=== PATIENT | female | born 1950 | race American Indian/Alaskan Native ===

== ENCOUNTER 2018-03-27 11:55 | Emergency (ER) | payer MEDICARE ==
--- NOTE | 2018-03-27 16:31 | Emergency Department Report ---
ED Lower Extremity HPI - General Chief Complaint: Extremity Problem,Nontraumatic Stated Complaint: PAIN ON (L) LEG/KNEE Time Seen by Provider: 03/27/18 14:53 Source: patient Mode of arrival: Ambulatory Limitations: No Limitations - History of Present Illness Initial Comments: This is a 67-year-old -Filipino female presents with left thigh pain radiated to left ankle for 3-4 weeks. Patient reports pain is 9 out of 10 on pain scale intermittent. Patient states there is swelling of left ankle and numbness to left foot. Patient has been using heat and ice with no improvement of symptoms. States she information on line and thought it was a pulled hamstring but in believe he should have improved by now. Denies recent injury, deformity, warm to touch, low back pain, chest pain, abdominal pain, and nausea and vomiting. MD Complaint: thigh injury (left thigh) Onset/Timin -: week(s) Injury: Thigh: Left, Knee: Left Type of Injury: unknown Place: home Severity: moderate Severity scale (0 -10): 6 Improves With: nothing Worsens With: weight bearing, movement, palpation Context: walking Associated Symptoms: swelling, numbness, able to partially bear weight, ambulatory. denies: tingling, unable to bear weight Treatments Prior to Arrival: cold therapy, NSAIDS - Related Data Previous Rx's Medication Instructions Recorded Last Taken Type traMADol [Ultram 50 MG tab] 50 mg PO Q6HR PRN #15 tablet 03/27/18 Unknown Rx Allergies Allergy/AdvReac Type Severity Reaction Status Date / Time No Known Allergies Allergy Unverified 08/13/15 09:11 ED Review of Systems ROS: Stated complaint: PAIN ON (L) LEG/KNEE Other details as noted in HPI Constitutional: denies: chills, fever Respiratory: denies: cough, shortness of breath, wheezing Cardiovascular: denies: chest pain, palpitations Gastrointestinal: denies: abdominal pain, nausea, diarrhea Musculoskeletal: arthralgia (or extremity pain). denies: back pain, joint swelling Skin: denies: rash, lesions Neurological: denies: headache, weakness, paresthesias Psychiatric: denies: anxiety, depression ED Past Medical Hx - Past Medical History Hx Asthma: Yes - Surgical History Additional Surgical History: Hysterectomy - Social History Smoking Status: Never Smoker Substance Use Type: None - Medications Home Medications: Home Medications Medication Instructions Recorded Confirmed Last Taken Type traMADol [Ultram 50 MG tab] 50 mg PO Q6HR PRN #15 tablet 03/27/18 Unknown Rx ED Physical Exam - General Limitations: No Limitations General appearance: alert, in no apparent distress - Respiratory Respiratory exam: Present: normal lung sounds bilaterally. Absent: respiratory distress - Cardiovascular Cardiovascular Exam: Present: regular rate, normal rhythm. Absent: systolic murmur, diastolic murmur, rubs, gallop - GI/Abdominal GI/Abdominal exam: Present: soft, normal bowel sounds. Absent: organomegaly, mass - Expanded Lower Extremity Exam Left Hip exam: Present: normal inspection, full ROM Upper Leg exam: Present: full ROM, tenderness. Absent: swelling, abrasion, laceration, ecchymosis, deformity, crepidus, dislocation Knee exam: Present: full ROM, full knee extension. Absent: tenderness, swelling , abrasion, laceration, ecchymosis, deformity, crepidus, dislocation, erythema, effusion Lower Leg exam: Present: full ROM. Absent: tenderness, swelling, abrasion, laceration, ecchymosis, deformity, crepidus, dislocation, erythema, palpable cord, Audrey's sign (positive straight leg test on Left) Ankle exam: Present: full ROM, swelling. Absent: abrasion, laceration, ecchymosis, deformity, crepidus, dislocation, erythema, anterior draw sign Foot/Toe exam: Present: normal inspection, full ROM Neuro vascular tendon exam: Present: no vascular compromise Gait: Positive: observed and limited by pain - Back Exam Back exam: Present: normal inspection, full ROM. Absent: CVA tenderness (R), CVA tenderness (L), paraspinal tenderness, vertebral tenderness, rash noted - Neurological Exam Neurological exam: Present: alert, oriented X3 - Psychiatric Psychiatric exam: Present: normal affect, normal mood - Skin Skin exam: Present: warm, dry, intact, normal color. Absent: rash ED Course Vital Signs 03/27/18 12:19 Temperature 98.4 F Pulse Rate 76 Respiratory 18 Rate Blood Pressure 152/95 O2 Sat by Pulse 98 Oximetry ED Lower Extremity MDM - Radiology Data Radiology results: report reviewed LLE VENOUS DUPLEX COMPLETED. VAS LAB PRELIMINARY REPORT; NO EVIDENCE OF DVT/SVT NOTED IN VESSELS/SEGMENTS EXAMINED, BLE. PHYSICIANS REPORT TO FOLLOW. - Medical Decision Making This is a 67 y.o. female presents with left lower extremity pain for 3-4 weeks. History of hypertension, hypothyroidism, hyperlipidemia. Patient was examined by me. Venous duplex Doppler to the left lower extremity obtained and negative for DVT. Physical findings susceptible of sciatica. Given Deford 5/ 325 mg by mouth 1 and dexamethasone 8 mg IM while in ER. Patient is taking Flexeril and Ibuprofen prescribed from primary care provider Dr. Reeder with no improvement of symptoms. Patient states PCP was going to refer her to Orthopedic and pain management but he never sent referrals. She can't take pain pain. Patient informed of results. Continue taking ibuprofen and cyclobenzaprine and start tramadol for pain and f/u with orthopedic Surgery. Plan discussed with patient to discharge home and f/u with Orthopedic. Patient discharged home in stable condition. Follow up with PCP in 2-3 days. Critical care attestation.: If time is entered above; I have spent that time in minutes in the direct care of this critically ill patient, excluding procedure time. ED Disposition Clinical Impression: Sciatica of left side without back pain, Left leg pain Disposition: TO HOME OR SELFCARE Is pt being admited?: No Does the pt Need Aspirin: No Condition: Stable Instructions: Sciatica (ED), Arthralgia (ED) Additional Instructions: Rest Use ice or heat on affected area for 20 minutes and off for 2 hours. Take pain medication as needed for pain. Don't drive or operate heavy machinery while taking muscle relaxers because they may cause drowsiness. Follow up with Primary Care Provider in 2-3 days. Prescriptions: traMADol [Ultram 50 MG tab] 50 mg PO Q6HR PRN #15 tablet PRN Reason: Pain Referrals: CASE RICHARD MD [Staff Physician] - 3-5 Days JUDY REEDER MD [Referring] - 3-5 Days [facility] [Provider Group] - 3-5 Days Time of Disposition: 17:49 Print Language: NORWEGIAN
[2018-03-27] MEDS ORDERED: DECADRON IM ONE (17:52)
[2018-03-27] MEDS ORDERED: NORCO 5/325 PO ONE (17:52)
[2018-03-27 18:21] VITALS: BP 119/66
== END 2018-03-27 18:21 | disposition home or self-care (01) ==
LOC: ED 11:55
DX: M54.32 Sciatica, left side (principal); M79.605 Pain in left leg; J45.909 Unspecified asthma, uncomplicated; I10 Essential (primary) hypertension; E03.9 Hypothyroidism, unspecified; E78.5 Hyperlipidemia, unspecified; Z90.710 Acquired absence of both cervix and uterus
CPT/HCPCS: 93971; 96372; 99283; J1100

== ENCOUNTER 2018-11-12 10:56 | Emergency (ER) | payer MEDICARE ==
--- NOTE | 2018-11-12 11:45 | Emergency Department Report ---
Chief Complaint: Fall Stated Complaint: FALL Time Seen by Provider: 11/12/18 11:44 - HPI History of Present Illness: sp glf no loc co right side pain- ankle, knee, hip ambulatory VSS MSE completed - Exam Vital Signs: Vital Signs 11/12/18 11:18 Temperature 97.9 F Pulse Rate 79 Respiratory 16 Rate Blood Pressure 167/103 O2 Sat by Pulse 99 Oximetry MSE screening note: Focused history and physical exam performed. Due to findings the following was ordered: ED Disposition for MSE Condition: Stable Referrals: NATHEN RONDON MD [Primary Care Provider] - 3-5 Days
[2018-11-12 12:35] VITALS: BP 133/76
--- NOTE | 2018-11-12 12:39 | Emergency Department Report ---
ED Fall HPI - General Chief Complaint: Fall Stated Complaint: FALL Time Seen by Provider: 11/12/18 11:44 Source: patient Mode of arrival: Ambulatory - History of Present Illness MD Complaint: fall -: Last night Fall From: standing Fall Witnessed: yes, by family Place Fall Occurred: home Loss of Consciousness: none Prolonged Down Time?: no Symptoms Prior to Fall: none Location - Extremities: Right: Shoulder, Knee, Ankle Severity: moderate Severity scale (0 -10): 5 Quality: sharp Context: tripped/slipped Associated Symptoms: denies - Related Data Previous Rx's Medication Instructions Recorded Last Taken Type traMADol [Ultram 50 MG tab] 50 mg PO Q6HR PRN #15 tablet 03/27/18 Unknown Rx Allergies Allergy/AdvReac Type Severity Reaction Status Date / Time No Known Allergies Allergy Unverified 08/13/15 09:11 ED Review of Systems ROS: Stated complaint: FALL Other details as noted in HPI Comment: All other systems reviewed and negative Constitutional: denies: chills, fever Respiratory: denies: cough, shortness of breath, SOB with exertion Cardiovascular: denies: chest pain, palpitations Gastrointestinal: denies: abdominal pain, nausea, diarrhea, constipation, hematemesis, hematochezia Musculoskeletal: arthralgia. denies: back pain Neurological: denies: headache, weakness ED Past Medical Hx - Past Medical History Hx Asthma: Yes - Surgical History Additional Surgical History: Hysterectomy - Social History Smoking Status: Never Smoker Substance Use Type: Prescribed - Medications Home Medications: Home Medications Medication Instructions Recorded Confirmed Last Taken Type traMADol [Ultram 50 MG tab] 50 mg PO Q6HR PRN #15 tablet 03/27/18 Unknown Rx ED Physical Exam - General Limitations: No Limitations General appearance: alert, in no apparent distress - Head Head exam: Present: atraumatic, normocephalic, normal inspection - Eye Eye exam: Present: normal appearance, PERRL - ENT ENT exam: Present: normal exam, normal orophraynx, mucous membranes moist - Neck Neck exam: Present: normal inspection, full ROM. Absent: tenderness, meningismus, lymphadenopathy, thyromegaly - Respiratory Respiratory exam: Present: normal lung sounds bilaterally. Absent: respiratory distress, wheezes, rales, rhonchi, chest wall tenderness, accessory muscle use, decreased breath sounds, prolonged expiratory - Cardiovascular Cardiovascular Exam: Present: regular rate, normal rhythm, normal heart sounds - GI/Abdominal GI/Abdominal exam: Present: soft, normal bowel sounds. Absent: distended, tenderness, guarding, rebound, rigid, organomegaly, mass, bruit, pulsatile mass, hernia - Extremities Exam Extremities exam: Present: normal inspection, full ROM, normal capillary refill. Absent: pedal edema, calf tenderness - Expanded Upper Extremity Exam Right Shoulder Exam: Present: normal inspection, full ROM, tenderness. Absent: swelling, abrasion, laceration Upper Arm exam: Present: normal inspection, full ROM Elbow exam: Present: normal inspection, full ROM Forearm Wrist exam: Present: normal inspection, full ROM, tenderness. Absent: swelling, abrasion Hand Wrist exam: Present: normal inspection, full ROM Neuro motor exam: Present: wrist extension intact, thumb opposition intact, thumb IP flexion intact, thumb adduction intact, fingers 2-5 abduction intact Neurosensory exam: Present: 2-point discrimination, radial nerve intact, ulnar nerve intact, median nerve intact Vascular: Present: normal capillary refill - Expanded Lower Extremity Exam Right Hip exam: Present: full ROM. Absent: tenderness, swelling, abrasion Knee exam: Present: normal inspection, full ROM Lower Leg exam: Present: normal inspection, full ROM. Absent: tenderness, swelling, abrasion Ankle exam: Present: normal inspection, full ROM, tenderness, swelling Foot/Toe exam: Present: normal inspection, full ROM Neuro vascular tendon exam: Present: no vascular compromise - Back Exam Back exam: Present: normal inspection, full ROM. Absent: tenderness, CVA tenderness (R), CVA tenderness (L), muscle spasm, paraspinal tenderness, vertebral tenderness ED Course Vital Signs 11/12/18 11/12/18 11:18 12:33 Temperature 97.9 F Pulse Rate 79 65 Respiratory 16 16 Rate Blood Pressure 167/103 Blood Pressure 133/76 [Left] O2 Sat by Pulse 99 95 Oximetry ED Medical Decision Making - Radiology Data Radiology results: report reviewed Right tib-fib, right knee, right ankle x-ray is negative for acute finding. Critical care attestation.: If time is entered above; I have spent that time in minutes in the direct care of this critically ill patient, excluding procedure time. ED Disposition Clinical Impression: Fall, Contusion Disposition: TO HOME OR SELFCARE Is pt being admited?: No Condition: Stable Instructions: Fall Prevention (ED), Contusion in Adults (ED) Referrals: NATHEN RONDON MD [Primary Care Provider] - 3-5 Days
--- NOTE | 2018-11-12 14:01 | XRay Report ---
PROCEDURE: XR ANKLE 3+V RT TECHNIQUE: Right ankle radiographs, AP, lateral, and oblique views. HISTORY: fall, right ankle pain COMPARISONS: None . FINDINGS: Fracture (s) and/or Dislocation(s): None . Alignment: Normal . Joint space(s): Mild hypertrophic changes of the medial malleolus . Soft tissues: Mild diffuse soft tissue swelling . Bone mineralization: Normal . Foreign bodies: None . Calcaneal spurring: Small plantar calcaneal spur and small enthesophyte of the descending . IMPRESSION: Mild degenerative changes without acute fracture or dislocation . Mild diffuse soft tiss ue swelling. This document is electronically signed by Susu Bhatti MD., November 12 2018 01:58:12 PM ET
--- NOTE | 2018-11-12 14:08 | XRay Report ---
PROCEDURE: XR KNEE 3V RT HISTORY: fall, right knee pain FINDINGS: AP, lateral and oblique views of the right knee were acquired and demonstrate no fracture o r malalignment of the right knee. There is advanced tricompartmental osteoarthritis. There is a knee joint effusion. IMPRESSION: No fracture is seen of the right knee Advanced tricompartmental right knee osteoarthritis. Knee joint effusion This document is electronically signed by Dmitriy Vazquez MD., November 12 2018 02:06:14 PM ET
--- NOTE | 2018-11-12 14:09 | XRay Report ---
PROCEDURE: XR PELVIS 1-2V TECHNIQUE: Pelvis radiograph, one view. HISTORY: fall, right hip pain COMPARISONS: None FINDINGS: Single AP view of the pelvis was acquired. No fracture is seen in the pelvis or hips. There is mild loss of left hip joint space consistent with osteoarthritis. IMPRESSION: No fracture is seen in the pelvis or hips This document is electronically signed by Dmitriy Vazquez MD., November 12 2018 02:06:55 PM ET
== END 2018-11-12 14:29 | disposition home or self-care (01) ==
LOC: ED 10:56
DX: S40.011A Contusion of right shoulder, initial encounter (principal); S90.01XA Contusion of right ankle, initial encounter; S80.01XA Contusion of right knee, initial encounter; W18.30XA Fall on same level, unspecified, initial encounter; Y93.89 Activity, other specified; Y92.89 Other specified places as the place of occurrence of the external cause; Y99.8 Other external cause status
CPT/HCPCS: 72170

== ENCOUNTER 2020-12-29 09:31 | Outpatient (CLI) | payer MEDICARE ==
--- NOTE | 2020-12-29 11:02 | XRay Report ---
BILATERAL KNEES STANDING AP VIEW INDICATION: M17.0 M17.11. COMPARISON: None. IMPRESSION: Normal bone mineralization. No acute osseous abnormality or bone lesion. Mild to modera te valgus deformity is present bilaterally, more so on the right. Minimal osteoarthritic changes are identified in the left knee. Moderate to severe degenerative changes are identified in the right knee which are most pronounced in the lateral compartment. Signer Name: Blake Catalan Jr, MD Signed: 12/29/2020 10:58 AM Workstation Name: [id number]
== END 2020-12-29 09:32 | disposition home or self-care (01) ==
LOC: XRAY 09:31
PROVIDERS: ATTEND Orthopaedic Surgery
DX: M17.0 Bilateral primary osteoarthritis of knee (principal); M21.062 Valgus deformity, not elsewhere classified, left knee; M21.061 Valgus deformity, not elsewhere classified, right knee
CPT/HCPCS: 73565

== ENCOUNTER 2021-02-12 06:14 | Inpatient (IN) | payer MEDICARE ==
[2021-02-10 09:54] LABS: Hematocrit 37.2 % (30.3-42.9); Hemoglobin 12.2 gm/dl (10.1-14.3); Mean Corpuscular HGB Conc 33 % (30-34); Mean Corpuscular Volume 86 fl (79-97); Platelet Count 271 K/mm3 (140-440); Red Blood Count 4.34 M/mm3 (3.65-5.03); Red Cell Distribution Width 14.7 % (13.2-15.2)
--- NOTE | 2021-02-10 10:06 | Anesthesia Consultation ---
Anesthesia Consult and Med Hx Date of service: 02/12/21 - Airway Anesthetic Teeth Evaluation: Good ROM Head & Neck: Adequate Mental/Hyoid Distance: Adequate Mallampati Class: Class II Intubation Access Assessment: Good - Pre-Operative Health Status ASA Pre-Surgery Classification: ASA2 Proposed Anesthetic Plan: Spinal (GA if needed) Nerve Block: AC - Pulmonary Hx Smoking: No Hx Asthma: Yes (INHHALER PRN) Hx Sleep Apnea: No (BRICE PRE SCREEN LOW RISK) - Cardiovascular System Hx Hypertension: Yes (X 5 YRS) - Central Nervous System Hx Back Pain: Yes (NECK PAIN , SCIATIC PAIN) Hx Psychiatric Problems: No - Endocrine Hx Thyroid Disease: Yes Hx Hypothyroidism: Yes (NOT ON MEDS AT PRESENT-self d/c'd) - Hematic Hx Anemia: No - Other Systems Hx Cancer: No
[2021-02-10 10:15] LABS: BUN/Creatinine Ratio 23; Blood Urea Nitrogen 18 mg/dL (7-17); Calcium 9.3 mg/dL (8.4-10.2); Hemolysis Index 0
[~2021-02-12 06:14] MED LIST: ACETAMINOPHEN 325 MG TAB PO NR; CELECOXIB 200 MG CAP PO NR; MAGNESIUM OXIDE 400 MG TAB PO NR; MIDAZOLAM 2 MG/2 ML INJ IV NR; ceFAZolin/Water 2 GM/20 ML 2 GM/20 ML SYRINGE IV NR; fentaNYL 100 MCG/2 ML INJ IV NR
--- NOTE | 2021-02-12 06:59 | Anesthesia Day of Surgery ---
Anesthesia Day of Surgery - Day of Surgery Patient Examined: Yes Patient H&P Reviewed: Yes Patient is NPO: Yes Beta Blockers: No Cardiac Clearance: No Pulmonary Clearance: No Johnny's Test: N/A
[2021-02-12] MEDS ORDERED: fentaNYL 100 MCG/2 ML INJ ONE (07:12)
[2021-02-12] MEDS ORDERED: propofoL 200 MG/20 ML VIAL IV ONE ×5 (07:12→10:11)
[2021-02-12] MEDS ORDERED: HYDROmorphone 1 MG/1 ML INJ ONE (07:12)
[2021-02-12] MEDS ORDERED: ONDANSETRON 4 MG/2 ML INJ ONE (07:12)
[2021-02-12] MEDS ORDERED: LIDOCAINE MPF (2%) 20 MG/1 ML VIAL 5 ML ONE (07:12)
[2021-02-12] MEDS ORDERED: BUPIVACAINE/PF (0.25%) 2.5 MG/ML 30 ML VIAL INFILTRATI ONE (07:22)
[2021-02-12] MEDS ORDERED: dexAMETHasone 4 MG/ML VIAL ONE (07:23)
[2021-02-12] MEDS: LACTATED RINGERS 1,000 ML IV SCH ×2 (07:30→16:10)
[2021-02-12] MEDS ORDERED: ePHEDrine SULFATE 50 MG/1 ML INJ ONE ×2 (07:42→08:50)
[2021-02-12] MEDS ORDERED: HYDROmorphone 1 MG/1 ML INJ IV PRN ×2 (08:00)
[2021-02-12] MEDS ORDERED: ONDANSETRON 4 MG/2 ML INJ IV PRN ×2 (08:00→11:02)
[2021-02-12] MEDS ORDERED: BUPIVACAINE/PF (0.5%) 5 MG/1 ML 10 ML VIAL INFILTRATI ONE ×3 (08:18→09:44)
[2021-02-12] MEDS ORDERED: KETOROLAC 30 MG/1 ML INJ ONE (08:19)
[2021-02-12] MEDS ORDERED: SODIUM CHLORIDE 0.9% 100 ML ONE ×2 (08:19→08:44)
[2021-02-12] MEDS ORDERED: SODIUM CHLORIDE 0.9% 50 ML ONE (08:19)
[2021-02-12] MEDS ORDERED: SODIUM CHLORIDE P/F VIAL 10 ML 0 ML ONE (08:19)
[2021-02-12] MEDS ORDERED: TRANEXAMIC ACID 1,000 MG/10 ML ONE (08:19)
[2021-02-12] MEDS ORDERED: MORPHINE 10 MG/1 ML INJ ONE (08:44)
[2021-02-12] MEDS ORDERED: KETAMINE/STERILE WATER 50 MG/ML SYRINGE ONE (08:56)
[2021-02-12] MEDS ORDERED: methylPREDNISolone ACETATE 40 MG/1 ML INJ ONE (09:14)
[2021-02-12] MEDS ORDERED: KETOROLAC 30 MG/1 ML INJ IV ONE (09:45)
[2021-02-12] MEDS ORDERED: MORPHINE 10 MG/1 ML INJ IM ONE (09:46)
[2021-02-12] MEDS ORDERED: SODIUM CHLORIDE 0.9% 100 ML IVPB IV ONE (09:47)
[2021-02-12] MEDS ORDERED: SODIUM CHLORIDE 0.9% 50 ML IVPB IV ONE (09:48)
[2021-02-12] MEDS ORDERED: methylPREDNISolone ACETATE 40 MG/1 ML INJ INTRA-ARTI ONE (09:48)
[2021-02-12] MEDS ORDERED: TRANEXAMIC ACID 1,000 MG/10 ML IV ONE (10:00)
--- NOTE | 2021-02-12 11:16 | Procedure Note ---
Date of procedure: 02/12/21 Pre-op diagnosis: Severe arthritis right knee Post-op diagnosis: same Procedure: [Right] total knee replacement Procedure The patient was brought to the OR after being given a obturator nerve block and preoperative holding she was placed on the OR table supine position following induction elevation of anesthesia the patient is [right] lower extremity was prepped and draped in the usual sterile manner. A timeout procedure was done to identify the patient in the correct operative site. The leg was exsanguinated followed by inflation of the pneumatic tourniquet to 300 mmHg. A midline incision was made over the patella was taken down distally towards the tibial tubercle next the medial retinaculum was incised and the patella was inverted examination of the patient's knee joint revealed typical osteoarthritic changes with large bone spurs noted primarily in the medial compartment both the femoral and tibial's articular surfaces exhibited bare bone and large peripheral osteophytes next a large drill bit was used to enter the medullary canal this was followed by placement of the distal femoral cutting Jig the distal femur was resected approximately 8-9 mm of bone was removed at this time. Attention was turned to the patient's proximal tibia using a external alignme guide the bone was cut using the medial surface as the low point of care was taken to protect the medial collateral ligaments the tibial articular surface was 7-sized A3 a #4 tibial based ray was selected this was followed by placement of the fixation hole or keel into the proximal tibial artery medullary canal. Attention was turned to the distal femur and using a 4 and 1 cutting block a +3 component was selected AP anterior and posterior as well as Whitney cuts were made. A #4 tibial tray and #3 femoral component was placed and the knee was then taken to a range of motion she appeared to have stability in both the flexion and extension FOLLOWING this the trial components were removed the knee was then copiously irrigated any remaining soft tissue and bony debris were removed at this time next the cement was next and following this the tibial components were inserted beginning with the based tray followed by the 17mm polyethylene insert The femoral component was added the excess were removed the knee was held in extension until the cement hardened following hardening of cement the knee was then brought back into of flexion any remaining soft tissue and bony debris were removed at this time. The wound again was irrigated and was closed in a standard routine fashion. Dressings were applied the patient tolerated the procedure there were no complications she was then taken to post anesthesia recovery Anesthesia: MAC, regional Surgeon: CASE RICHARD (Ioana Davila, 1st assist) Estimated blood loss: minimal Pathology: list (Bone and cartilage right knee) Specimen disposition: to lab Condition: stable Disposition: PACU
--- OUTSIDE RECORDS SUMMARY | 2021-02-12 15:44 | External Medical Summary ---
:1950 Author Organization [facility], [facility] Address [address] [place] [address] Care Team Providers Name Role Phone Kael Unavailable [phone] PROBLEMS Type Condition ICD9-CM [id number] Onset Condition W/U Status Risk SNOM ED Notes Code Code Dates Status Code Problem Unilateral M17.11 Active confirmed 089583842 primary osteoarthriti s, right knee Problem Bilateral M17.0 Active confirmed [id number] primary osteoarthriti s of knee ALLERGIES No Known Allergies ENCOUNTERS from 1950 to 2021-02-12 Encounter Location Date Provider Diagnosis [facility] [address] [facility] January, Ignacio hsieh primary [facility] level of osteoart hritis of knee [place], [place] M17.0 and Unilateral [id number] primary osteoar thritis, right knee M17. 11 IMMUNIZATIONS No Information SOCIAL HISTORY Sex Assigned At : Social History Observation Description Sex Assigned At Unknown REASON FOR REFERRAL from 1950 to 2021-02-12 Diagnosis 1 Bilateral primary osteoarthr itis of knee (M17.0) Diagnosis 2 Unilateral primary osteoarth ritis, right knee (M17.11) Referral Organization [facility] Referring Provider First Name Ignacio Referring Provider Last Name Kael Referring Provider Specialty Orthopedic Surgery Referred Provider [facility], - Referral Priority Routine VITAL SIGNS Height 65 in January, Weight 186 lbs January, Temperature 97.9 degrees Fahrenheit January, BMI 30.95 kg/m2 January, Blood pressure systolic 123 mm Hg January, Blood pressure diastolic 81 mm Hg January, MEDICATIONS Medication SIG (Take, Route, Notes Start Date End Date Status Frequency, Duration) HYDROcodone-Acetaminophen 1 tablet as needed Nov, Active 5-325 MG Orally every 6 hrs Levothyroxine Sodium 25 MCG 1 tablet in the morning Active on an empty stomach Orally Once a day for 30 day(s) Commode Bedside - as directed January, Acti ve amLODIPine Besylate 5 MG 1 tablet Orally Once a Active day for 30 day(s) Ibuprofen 800 MG 1 tablet with food or Active milk as needed Orally Three times a day Hydrochlorothiazide-25 mg 1 tablet in the morning Active 25 MG Orally Once a day for 30 day(s) Knee Brace - as directed Sep, Active hydrOXYzine HCl 25 MG 1 tablet as needed Active Orally every 8 hrs for 30 day(s) Walker - as directed January, Active PROCEDURES No Information RESULTS No Results REASON FOR VISIT Right knee pain MEDICAL (GENERAL) HISTORY Type Description Date Medical History Anxiety Medical History Arthritis Medical History Chronic Fatigue Syndrome Medical History Thyroid Medical History Hypertension Surgical History Hysterectomy 1980 Hospitalization History See Above Goals Section No Information Health Concerns No Information MEDICAL EQUIPMENT No Information MENTAL STATUS No Information FUNCTIONAL STATUS No Information ASSESSMENTS Encounter Date Diagnosis Assessment Notes Treatment Notes Treatm ent Clinical Notes January, Bilateral primary discussed osteoarthritis of treatment options knee (ICD-10 - M17.0) with the patient, based on the history, PE, review of previous xrays, and response to Zilretta injection, I have recommended right total knee replacement January, Unilateral primary osteoarthritis, right knee (ICD-10 - M17.11) PLAN OF TREATMENT Medication Medication Name Sig Start Date Stop Date Commode Bedside - as directed January, HYDROcodone-Acetaminophen 5-325 1 tablet as needed Orally Nov MG every 6 hrs Ibuprofen 800 MG 1 tablet with food or milk as needed Orally Three times a day Walker - as directed January, Treatment Notes Assessment Notes Clinical Notes Bilateral primary osteoarthritis of discussed treatment opti ons with knee the patient, based on the history, PE, review of previous xrays, and response to Zilretta injection, I have recommended right total knee replacement Referrals Referral Date Details Next Appt Details Provider Name:Ignacio Scruggs, 2021-02-12 08:30:00 AM, [address] [facility], [place], [place], [phone], Insurance Providers Payer Name Payer Payer Insured Patient Coverage Coverage End Address Phone Name Relationship to Start Date Joey e Insured [facility] [phone] Yajaira Paredes Medicare HMO Laura [id number]
--- NOTE | 2021-02-12 18:15 | Post Anesthesia Evaluation ---
- Post Anesthesia Evaluation Patient Participated: Yes Airway Patent: Yes Stable Respiratory Function: Yes Nausea/Vomiting: No Temp > 96.8F: Yes Pain Manageable: Yes Adequeate Hydration: Yes Anesthesia Complications: No Block Receding Appropriately: Yes Patient on Ventilator: No
[2021-02-12] MEDS: KETOROLAC 30 MG/1 ML INJ IV PRN (20:27)
[2021-02-13] MEDS: MORPHINE 4 MG/1 ML INJ IV PRN ×2 (01:35→13:51)
[2021-02-13] MEDS: LACTATED RINGERS 1,000 ML IV SCH (01:45)
[2021-02-13] MEDS: KETOROLAC 30 MG/1 ML INJ IV PRN (06:26)
--- NOTE | 2021-02-13 13:07 | Progress Note ---
Assessment and Plan s/p right TKR doing well continue PT and observation, hopefully dc soon Subjective Date of service: 02/13/21 Interval history: no c/o's noted, PT started 2day... Objective Vital signs: Vital Signs - 12hr 02/13/21 02/13/21 02/13/21 01:29 01:35 03:45 Temperature 97.5 F L Pulse Rate 86 Respiratory 16 17 17 Rate Blood Pressure Blood Pressure 110/67 [Left] O2 Sat by Pulse 97 Oximetry 02/13/21 02/13/21 02/13/21 05:15 06:26 06:56 Temperature 97.7 F Pulse Rate 78 Respiratory 16 17 17 Rate Blood Pressure Blood Pressure 108/76 [Left] O2 Sat by Pulse 97 Oximetry 02/13/21 07:44 Temperature 98.2 F Pulse Rate 83 Respiratory 18 Rate Blood Pressure 117/71 Blood Pressure [Left] O2 Sat by Pulse 98 Oximetry Incision: healing, clean and dry Weight bearing status: as tolerated - Labs CBC & BMP: 02/10/21 09:30 02/10/21 09:30
[2021-02-13] MEDS: ENOXAPARIN 40 MG/0.4 ML INJ SUB-Q SCH (13:51)
--- NOTE | 2021-02-13 14:53 | XRay Report ---
RIGHT KNEE 3 VIEWS INDICATION: post op evaluation. COMPARISON: 12/29/2020 IMPRESSION: Recent right knee arthroplasty changes are evident. The hardware appears well applied. T here is normal articulation at the joint. No acute osseous abnormality is appreciated. Signer Name: Blake Catalan Jr, MD Signed: 02/13/2021 2:49 PM Workstation Name: [id number]
[2021-02-13] MEDS ORDERED: oxyCODONE 5 MG TAB PO PRN (19:19)
[2021-02-13] MEDS: IBUPROFEN 800 MG TAB PO PRN (22:01)
[2021-02-14] MEDS: MORPHINE 4 MG/1 ML INJ IV PRN ×3 (04:40→19:57)
[2021-02-14] MEDS: ENOXAPARIN 40 MG/0.4 ML INJ SUB-Q SCH (10:10)
[2021-02-14] MEDS: KETOROLAC 30 MG/1 ML INJ IV PRN (11:27)
[2021-02-15] MEDS: MORPHINE 4 MG/1 ML INJ IV PRN ×4 (01:51→21:42)
[2021-02-15] MEDS: ENOXAPARIN 40 MG/0.4 ML INJ SUB-Q SCH (10:05)
[2021-02-15] MEDS: IBUPROFEN 800 MG TAB PO PRN (21:13)
[2021-02-16] MEDS: KETOROLAC 30 MG/1 ML INJ IV PRN (00:21)
[2021-02-16] MEDS: MORPHINE 4 MG/1 ML INJ IV PRN (06:35)
[2021-02-16 07:52] VITALS: BP 108/67
--- NOTE | 2021-02-16 08:44 | Discharge Summary ---
Providers - Providers Date of Admission: 02/12/21 06:14 Date of discharge: 02/16/21 Attending physician: CASE RICHARD MD 02/12/21 11:05 Physical Therapy Evaluation and Treat [CONS] Routine Comment: Reason For Exam: Postop evaluation Weight bearing status?: Full wt bearing Assistive devices?: Yes If so list: Walker [facility] Hospital course: 70-year-old female with a long history of bilateral knee pain and stiffness right 1 being worse at this time plain x-ray taken revealed severe osteo arthritis patient was admitted to the hospital and was taken to the operating room where right total knee replacement was done without complications. Postoperatively she was seen by physical therapy where she was given instructions on gait weightbearing and range of motion exercises. Case management services were also consulted for home health and physical therapy Disposition: DC/- HOME [facility] Final Discharge Diagnosis (Prints w/discharge instructions): Severe arthritis right knee Core Measure Documentation - Palliative Care Palliative Care/ Comfort Measures: Not Applicable - Core Measures Any of the following diagnoses?: none - VTE Discharge Requirements Deep Vein Thrombosis/Pulmonary Embolism Present on Admission: No Has pt received <5 days of overlap therapy or INR<2.0: Yes Anticoagulant overlap therapy prescribed at discharge: Yes Contraindication No Overlap Therapy order at DC: Medical Contraindication - Acute SD Discharge Requirements Aspirin at discharge: No Reason for no aspirin on DC: Medical contraindication - Heart Failure Discharge Requirements JAVON/ARB for LVSD if EF <40%: No Reason for no JAVON/ARB: Medical contraindication - Stroke Discharge Requirements Statin for LDL = or >70 mg/dl on DC: No Exam - Physical Exam Narrative exam: right knee postop dressings intact negative Homans' sign - Constitutional Vitals: Temp Pulse Resp BP Pulse Ox 98.3 F 74 16 108/67 98 02/16/21 07:12 02/16/21 07:12 02/16/21 07:12 02/16/21 07:12 02/16/21 07:12 General appearance: Present: no acute distress, well-nourished - EENT Eyes: Present: PERRL ENT: hearing intact, clear oral mucosa - Neck Neck: Present: supple, normal ROM - Respiratory Respiratory effort: normal Respiratory: bilateral: CTA - Cardiovascular Heart Sounds: Present: S1 & S2. Absent: rub, click - Extremities Extremities: pulses symmetrical, No edema Peripheral Pulses: within normal limits - Abdominal General gastrointestinal: Present: soft, non-tender, non-distended, normal bowel sounds Female genitourinary: Present: normal - Integumentary Integumentary: Present: clear, warm, dry - Musculoskeletal Musculoskeletal: gait normal, strength equal bilaterally - Psychiatric Psychiatric: appropriate mood/affect, intact judgment & insight - Neurologic Neurologic: CNII-XII intact, moves all extremities Plan Activity: advance as tolerated Weight Bearing Status: Weight Bear as Tolerated Diet: regular Wound: keep clean and dry Special Instructions: physical therapy Durable Medical Equipment Needed Upon Discharge: Walker-Standard, Bedside Commode Follow up with: NATHEN RONDON MD [Primary Care Provider] - 7 Days Prescriptions: Apixaban [Eliquis] 5 mg PO DAILY #30 tablet Oxycodone HCl/Acetaminophen [Percocet 10/325 mg] 1 each PO Q6HR PRN #30 tablet PRN Reason: Pain
== END 2021-02-16 09:35 | disposition home health service (06) | DRG 470 ==
LOC: 3A 06:14 → 3B-SURG 11:24
PROVIDERS: ADMIT Orthopaedic Surgery; ATTEND Orthopaedic Surgery
PROC: 0SRC0J9 Replacement of Right Knee Joint with Synthetic Substitute, Cemented, Open Approach (ICD-10-PCS; principal; 2021-02-12)
DX: M17.11 Unilateral primary osteoarthritis, right knee (principal); J45.909 Unspecified asthma, uncomplicated; I10 Essential (primary) hypertension; Z20.822 Contact with and (suspected) exposure to COVID-19
CPT/HCPCS: 36415; 64450; 80048; 85027; 88304; 88309; 88311; G0378; C1776; J1030; J1100; J1170; J1650; J1885; J2250; J2270; J2405; J2704; J3010; J3490; J7120; U0003

== ENCOUNTER 2021-07-14 13:37 | Outpatient (CLI) | payer MEDICARE ==
--- NOTE | 2021-07-14 15:05 | XRay Report ---
RIGHT KNEE 2 VIEW(S) INDICATION / CLINICAL INFORMATION: UNILATERAL PRIMARY Ostearthritis, right KNEE COMPARISON: radiographs dated 02/13/2021. FINDINGS: BONES / JOINT(S): Right total knee arthroplasty projects in expected position without complication. SOFT TISSUES: No significant abnormality. ADDITIONAL FINDINGS: None. Signer Name: Bertin Delarosa MD Signed: 07/14/2021 3:01 PM Workstation Name: [email or web address]
== END 2021-07-14 13:38 | disposition home or self-care (01) ==
LOC: XRAY 13:37
PROVIDERS: ATTEND Orthopaedic Surgery
DX: M17.11 Unilateral primary osteoarthritis, right knee (principal); Z96.651 Presence of right artificial knee joint

== ENCOUNTER 2021-10-20 10:51 | Outpatient (CLI) | payer MEDICARE ==
--- NOTE | 2021-10-20 13:42 | XRay Report ---
Left knee 3 views INDICATION: Knee pain FINDINGS: Left knee total arthroplasty is satisfactory position. No acute fracture dislocation. There may be mild soft tissue swelling. Signer Name: Zoran Rivera MD Signed: 10/20/2021 1:37 PM Workstation Name: [id number]
== END 2021-10-20 10:52 | disposition home or self-care (01) ==
LOC: XRAY 10:51
PROVIDERS: ATTEND Orthopaedic Surgery
DX: M25.562 Pain in left knee (principal); M17.0 Bilateral primary osteoarthritis of knee; Z96.652 Presence of left artificial knee joint

== ENCOUNTER 2022-01-07 11:41 | Outpatient (CLI) | payer MEDICARE ==
--- NOTE | 2022-01-07 14:43 | XRay Report ---
Left knee, 2 views HISTORY: Postop, weightbearing COMPARISON: 10/20/2021. FINDINGS: Left total knee arthroplasty projects in expected position. There is mild genu valgus on we ightbearing. No acute fracture or malalignment. Small joint effusion and mild prepatellar soft tissue swelling remain. Signer Name: Darian Handy MD Signed: 01/07/2022 2:39 PM Workstation Name: [id number]
== END 2022-01-07 11:42 | disposition home or self-care (01) ==
LOC: XRAY 11:41
PROVIDERS: ATTEND Orthopaedic Surgery
DX: M25.462 Effusion, left knee (principal); M21.062 Valgus deformity, not elsewhere classified, left knee

== ENCOUNTER 2022-01-14 15:31 | Outpatient (CLI) | payer MEDICARE ==
[2022-01-14 16:57] LABS: Basophils % (Auto) 1.2 % (0.0-1.8); Eosinophils # (Auto) 0.2 K/mm3 (0.0-0.4); Eosinophils % (Auto) 4.9 % (0.0-4.3); Hematocrit 29.5 % (30.3-42.9); Hemoglobin 9.4 gm/dl (10.1-14.3); Lymphocytes # (Auto) 0.8 K/mm3 (1.2-5.4); Lymphocytes % (Auto) 20.1 % (13.4-35.0); Mean Corpuscular HGB Conc 32 % (30-34); Mean Corpuscular Volume 77 fl (79-97); Monocytes # (Auto) 0.4 K/mm3 (0.0-0.8); Monocytes % (Auto) 10.6 % (0.0-7.3); Platelet Count 300 K/mm3 (140-440); Red Blood Count 3.81 M/mm3 (3.65-5.03); Red Cell Distribution Width 17.4 % (13.2-15.2)
[2022-01-14 17:08] LABS: Alanine Aminotransferase 7 units/L (7-56); Albumin 4.5 g/dL (3.9-5); BUN/Creatinine Ratio 14; Blood Urea Nitrogen 13 mg/dL (7-17); Calcium 10.5 mg/dL (8.4-10.2); Hemolysis Index 4
[2022-01-14 17:25] LABS: Erythrocyte Sedimentation Rate 61 mm/Hr (0-20)
== END 2022-01-14 15:32 | disposition home or self-care (01) ==
LOC: LAB 15:31
PROVIDERS: ATTEND Orthopaedic Surgery
DX: T84.023D Instability of internal left knee prosthesis, subsequent encounter (principal); Z03.89 Encounter for observation for other suspected diseases and conditions ruled out; X58.XXXD Exposure to other specified factors, subsequent encounter
CPT/HCPCS: 36415; 80053; 85025; 85652; 86140

== ENCOUNTER 2022-01-21 06:01 | Inpatient (IN) | payer MEDICARE ==
[2022-01-21] MEDS ORDERED: ceFAZolin/Water 2 GM/20 ML 2 GM/20 ML SYRINGE IV NR (08:00)
[2022-02-22 12:16] LABS: Basophils # (Auto) 0.1 K/mm3 (0.0-0.1); Basophils % (Auto) 0.9 % (0.0-1.8); Eosinophils # (Auto) 0.1 K/mm3 (0.0-0.4); Hematocrit 29.2 % (30.3-42.9); Hemoglobin 9.3 gm/dl (10.1-14.3); Lymphocytes # (Auto) 0.9 K/mm3 (1.2-5.4); Mean Corpuscular HGB Conc 32 % (30-34); Mean Corpuscular Volume 77 fl (79-97); Monocytes # (Auto) 0.4 K/mm3 (0.0-0.8); Monocytes % (Auto) 6.1 % (0.0-7.3); Platelet Count 349 K/mm3 (140-440); Red Cell Distribution Width 17.4 % (13.2-15.2)
[2022-02-22 12:47] LABS: Alanine Aminotransferase 6 units/L (7-56); Albumin 4.4 g/dL (3.9-5); BUN/Creatinine Ratio 19; Blood Urea Nitrogen 13 mg/dL (7-17); Calcium 9.9 mg/dL (8.4-10.2); Hemolysis Index 6
--- NOTE | 2022-02-22 15:57 | Anesthesia Consultation ---
Anesthesia Consult and Med Hx Date of service: 02/25/22 - Airway Anesthetic Teeth Evaluation: Good ROM Head & Neck: Adequate Mental/Hyoid Distance: Adequate Mallampati Class: Class I Intubation Access Assessment: Good - Pre-Operative Health Status ASA Pre-Surgery Classification: ASA2 Proposed Anesthetic Plan: Spinal (GA if needed) Nerve Block: AC - Pulmonary Hx Smoking: No Hx Asthma: Yes (INHHALER PRN. Allergy induced) Hx Sleep Apnea: No (BRICE PRE SCREEN LOW RISK) - Cardiovascular System Hx Hypertension: Yes (X 6 YRS) - Central Nervous System Hx Neuromuscular Disorder: Yes (Chronic fatigue syndrome) Hx Back Pain: Yes (NECK AND BACK PAIN , SCIATIC PAIN LEFT) Hx Psychiatric Problems: Yes (Anxiety/Depression) - Gastrointestinal Hx Gastroesophageal Reflux Disease: No - Endocrine Hx Thyroid Disease: Yes Hx Hypothyroidism: Yes - Hematic Hx Anemia: Yes (9.3/29.2) Hx Sickle Cell Disease: No - Other Systems Hx Cancer: No - Additional Comments Anesthesia Medical History Comments: Was here [id number] & [id number] for TKA and had SAB with AC block. She requests the same anesthesic technique. Numbness left fingers and toes. Had asthma attack last time when leaving PACU and up to floor
[2022-02-25] MEDS ORDERED: MIDAZOLAM 2 MG/2 ML INJ IV NR ×2 (06:00→08:00)
[2022-02-25] MEDS ORDERED: MAGNESIUM OXIDE 400 MG TAB PO NR (06:00)
[2022-02-25] MEDS ORDERED: CELECOXIB 200 MG CAP PO NR (06:00)
[2022-02-25] MEDS ORDERED: ALBUTEROL 2.5 MG/3 ML NEBU IH NR (06:00)
[2022-02-25] MEDS ORDERED: fentaNYL 100 MCG/2 ML INJ IV NR (06:00)
[2022-02-25] MEDS ORDERED: ACETAMINOPHEN 325 MG TAB PO NR (06:00)
[2022-02-25] MEDS: LACTATED RINGERS 1,000 ML IV SCH ×2 (07:00→13:33)
[2022-02-25] MEDS ORDERED: propofoL 200 MG/20 ML VIAL IV ONE ×3 (07:19→10:00)
[2022-02-25] MEDS ORDERED: LIDOCAINE PF 100 MG/5 ML (CARDIAC SYRINGE) IV ONE (07:19)
[2022-02-25] MEDS ORDERED: fentaNYL 250 MCG/5 ML INJ ONE (07:19)
[2022-02-25] MEDS ORDERED: BUPIVACAINE/PF (0.25%) 2.5 MG/ML 30 ML VIAL INFILTRATI ONE ×3 (07:43→10:21)
[2022-02-25] MEDS ORDERED: dexAMETHasone 4 MG/ML VIAL ONE (07:43)
[2022-02-25] MEDS ORDERED: SODIUM CHLORIDE 0.9% 50 ML ONE (07:55)
[2022-02-25] MEDS ORDERED: MORPHINE 10 MG/1 ML INJ ONE (07:55)
[2022-02-25] MEDS ORDERED: KETOROLAC 30 MG/1 ML INJ ONE (07:55)
[2022-02-25] MEDS ORDERED: SODIUM CHLORIDE 0.9% 100 ML ONE (07:55)
[2022-02-25] MEDS ORDERED: ceFAZolin/STERILE WATER 2 GM/20 ML SYRINGE IV NR (08:00)
[2022-02-25] MEDS ORDERED: LIDOCAINE (1%) 10 MG/1 ML VIAL 20 ML MDV INFILTRATI ONE (08:00)
[2022-02-25] MEDS ORDERED: NEOMY 40 MG/POLYMYXIN B 200,000 UNITS/ML (GU) AMPULE IR ONE ×2 (08:01→10:22)
[2022-02-25] MEDS ORDERED: LIDOCAINE (1%) 10 MG/1 ML VIAL 20 ML MDV ONE (08:06)
[2022-02-25] MEDS ORDERED: KETAMINE/STERILE WATER 50 MG/ML SYRINGE ONE (09:55)
[2022-02-25] MEDS ORDERED: MORPHINE 10 MG/1 ML INJ IM ONE (10:21)
[2022-02-25] MEDS ORDERED: KETOROLAC 30 MG/1 ML INJ IV ONE (10:21)
[2022-02-25] MEDS ORDERED: SODIUM CHLORIDE 0.9% 100 ML IVPB IV ONE (10:22)
[2022-02-25] MEDS ORDERED: SODIUM CHLORIDE 0.9% IRRIG SOLN 2000 ML IR ONE (10:22)
[2022-02-25] MEDS ORDERED: SODIUM CHLORIDE 0.9% 50 ML IVPB IV ONE (10:22)
--- NOTE | 2022-02-25 10:55 | Procedure Note ---
Date of procedure: 02/25/22 Pre-op diagnosis: Persistent left knee pain and instability, s/p left TKR Post-op diagnosis: same Procedure: Left total knee revision with exchange of polyinsert Procedure The patient was brought to the OR placed on the OR table in supine position she was given a femoral obturator nerve block in preop holding next the left lower extremity was prepped and draped in the usual sterile manner a timeout procedure was done was done to identify the patient and the correct operative site. The leg was then exsanguinated followed by inflation of the pneumatic tourniquet to 300 mmHg utilizing the previous incision this was taken down sharply through skin subcu the quadriceps tendon and patella medial patellar retinacula were identified and incised there was no obvious infected fluid seen although cultures were taken at this level with next the the knee was then flexed but patella was everted deep soft tissue were cultures were obtained next the 10 mm polyinsert was removed and again using rongeurs the granulating tissues were debrided some were sent to pathology next the distal femur and proximal tibia was inspected for any obvious loosening none was seen following this the patient was sized beginning with a 12mm insert and progressing upwards to a 17mm insert the 17 mm insert appeared to give more stability in both flexion and extension following this the wound was copiously irrigated with antibiotic solution the 17 mm polyethylene insert was then inserted and locked into place again the knee was taken through full range of motion and appeared much more stable at this point next postoperative pain cocktail was injected both medial and laterally along the geniculate nerve regions the quadriceps and medial patellar retinaculum was then closed in a standard routine fashion postop dressings were applied patient tolerated procedure and there were no complications Anesthesia: MAC, regional Surgeon: CASE RICHARD (Juan Luis Tyson, 1st assist) Estimated blood loss: 50-100ml Pathology: list (Cultures and tissue was sent to microbiology) Specimen disposition: to lab Condition: stable Disposition: PACU
[2022-02-25] MEDS ORDERED: HYDROmorphone 0.5 MG/0.5 ML INJ ONE (11:06)
[2022-02-25] MEDS ORDERED: HYDROmorphone 0.5 MG/0.5 ML INJ IV PRN ×2 (11:10)
[2022-02-25] MEDS ORDERED: ONDANSETRON 4 MG/2 ML INJ IV PRN (11:10)
[2022-02-25] MEDS: KETOROLAC 30 MG/1 ML INJ IV PRN ×2 (12:20→21:24)
[2022-02-25] MEDS: MORPHINE 4 MG/1 ML INJ IV PRN ×2 (15:45→23:21)
--- NOTE | 2022-02-25 16:40 | Anesthesia Day of Surgery ---
Anesthesia Day of Surgery - Day of Surgery Patient Examined: Yes Patient H&P Reviewed: Yes Patient is NPO: Yes
[2022-02-25] MEDS: MORPHINE 2 MG/1 ML INJ IV PRN (18:57)
[2022-02-26] MEDS: KETOROLAC 30 MG/1 ML INJ IV PRN (05:30)
[2022-02-26] MEDS: MORPHINE 2 MG/1 ML INJ IV PRN ×3 (08:37→17:45)
[2022-02-26] MEDS: ENOXAPARIN 40 MG/0.4 ML INJ SUB-Q SCH ×2 (08:37→12:46)
--- NOTE | 2022-02-26 11:57 | XRay Report ---
LEFT KNEE 2 VIEWS INDICATION: post op evaluation. COMPARISON: None. IMPRESSION: Recent left knee arthroplasty changes are evident. The hardware appears well applied wi thout acute abnormality. Signer Name: Blake Catalan Jr, MD Signed: 02/26/2022 11:52 AM Workstation Name: [id number]
--- NOTE | 2022-02-26 15:11 | Progress Note ---
Assessment and Plan s/p revision left TKR doing ok continue PT and observation Subjective Date of service: 02/26/22 Interval history: c/o incisional pain...awaiting PT evaluation, otherwise ok Objective Vital signs: Vital Signs - 12hr 02/26/22 02/26/22 03:50 12:25 Temperature 97.9 F 98 F Pulse Rate 72 73 Respiratory 16 20 Rate Blood Pressure 99/62 Blood Pressure 100/56 [Left] O2 Sat by Pulse 98 97 Oximetry Incision: clean and dry Weight bearing status: as tolerated - Labs CBC & BMP: 02/22/22 10:45 02/22/22 10:45
[2022-02-26] MEDS: MORPHINE 4 MG/1 ML INJ IV PRN (20:41)
[2022-02-27] MEDS: MORPHINE 4 MG/1 ML INJ IV PRN ×2 (04:30→21:58)
[2022-02-27] MEDS: ENOXAPARIN 40 MG/0.4 ML INJ SUB-Q SCH (09:34)
[2022-02-27] MEDS: MORPHINE 2 MG/1 ML INJ IV PRN ×2 (09:52→16:12)
[2022-02-27] MEDS ORDERED: HYDROcodone/ACETAMINOPHEN 5-325 MG TAB PO PRN (14:13)
[2022-02-28] MEDS: HYDROcodone/ACETAMINOPHEN 5-325 MG TAB PO PRN ×2 (04:05→14:36)
[2022-02-28] MEDS: ENOXAPARIN 40 MG/0.4 ML INJ SUB-Q SCH (09:04)
[2022-02-28] MEDS: MORPHINE 2 MG/1 ML INJ IV PRN ×3 (09:04→21:52)
[2022-03-01] MEDS: MORPHINE 2 MG/1 ML INJ IV PRN ×2 (05:29→10:32)
[2022-03-01] MEDS: HYDROcodone/ACETAMINOPHEN 5-325 MG TAB PO PRN (08:43)
[2022-03-01 08:56] VITALS: BP 133/84
[2022-03-01] MEDS: ENOXAPARIN 40 MG/0.4 ML INJ SUB-Q SCH (09:36)
--- NOTE | 2022-03-01 12:30 | Discharge Summary ---
Providers - Providers Date of Admission: 02/25/22 06:10 Date of discharge: 03/01/22 Attending physician: CASE RICHARD MD 02/25/22 08:56 Consult to Case Management [CONS] Routine Services Needed at Discharge: Other Notified:: yes Additional Physician Instructions: Assess Discharge needs. Physical Therapy Evaluation and Treat [CONS] Routine Comment: Reason For Exam: Eval and Treat 02/25/22 13:12 Occupational Therapy Evaluate and Treat [CONS] Routine Comment: Reason For Exam: recent knee surgery Primary care physician: DEDRA VIEYRA Hospitalization Condition: Stable Procedures: Left knee revision arthroplasty Hospital course: 71-year-old female who was admitted for pain and instability left knee patient is status post left total knee replacement August 2021 work-up included preoperative cultures as well as hematologic markers indicating the risk of infection was low therefore patient was admitted taken to the operating room where intraoperative findings were consistent with preoperative work-up, therefore the polyethylene insert was exchanged for a larger one which improved stability. Postoperatively she was seen by physical therapy where she was given instructions on gait and range of motion exercises. Case management services were also consulted for home health and DME supplies Disposition: HOME HEALTH CARE SERVICE Final Discharge Diagnosis (Prints w/discharge instructions): T84.038A Core Measure Documentation - Palliative Care Palliative Care/ Comfort Measures: Not Applicable - Core Measures Any of the following diagnoses?: none - VTE Discharge Requirements Deep Vein Thrombosis/Pulmonary Embolism Present on Admission: No Has pt received <5 days of overlap therapy or INR<2.0: Yes Anticoagulant overlap therapy prescribed at discharge: Yes Contraindication No Overlap Therapy order at DC: Medical Contraindication - Acute CT Discharge Requirements Aspirin at discharge: No Reason for no aspirin on DC: Medical contraindication - Heart Failure Discharge Requirements JAVON/ARB for LVSD if EF <40%: Not Applicable - Stroke Discharge Requirements Statin for LDL = or >70 mg/dl on DC: Not Applicable Exam - Physical Exam Narrative exam: left knee - post op dressing intact, no redness/erythema, good AROM, neg Audrey's... - Constitutional Vitals: Temp Pulse Resp BP Pulse Ox 97.7 F 98 H 16 133/84 97 03/01/22 08:56 03/01/22 07:51 03/01/22 07:51 03/01/22 07:51 03/01/22 08:52 General appearance: Present: no acute distress, well-nourished - EENT Eyes: Present: PERRL ENT: hearing intact, clear oral mucosa - Neck Neck: Present: supple, normal ROM - Respiratory Respiratory effort: normal Respiratory: bilateral: CTA - Cardiovascular Heart Sounds: Present: S1 & S2. Absent: rub, click - Extremities Extremities: pulses symmetrical, No edema Peripheral Pulses: within normal limits - Abdominal General gastrointestinal: Present: soft, non-tender, non-distended, normal bowel sounds Female genitourinary: Present: normal - Integumentary Integumentary: Present: clear, warm, dry - Musculoskeletal Musculoskeletal: gait normal, strength equal bilaterally - Psychiatric Psychiatric: appropriate mood/affect, intact judgment & insight - Neurologic Neurologic: CNII-XII intact, moves all extremities Plan Activity: advance as tolerated Weight Bearing Status: Weight Bear as Tolerated Diet: regular Wound: keep clean and dry Special Instructions: physical therapy Durable Medical Equipment Needed Upon Discharge: Walker-Standard, Bedside Commode Follow up with: DEDRA VIEYRA MD [Primary Care Provider] - 7 Days Prescriptions: Apixaban [Eliquis] 5 mg PO DAILY #30 Oxycodone HCl/Acetaminophen [Percocet 10/325 mg] 1 each PO Q6HR PRN #30 PRN Reason: Pain
== END 2022-03-01 13:07 | disposition home health service (06) | DRG 489 ==
LOC: 3A 02-25 06:10
PROVIDERS: ADMIT Orthopaedic Surgery; ATTEND Orthopaedic Surgery
PROC: 0SPD09Z Removal of Liner from Left Knee Joint, Open Approach (ICD-10-PCS; principal; 2022-02-25)
PROC: 0SUW09Z Supplement Left Knee Joint, Tibial Surface with Liner, Open Approach (ICD-10-PCS; 2022-02-25)
DX: M25.362 Other instability, left knee (principal); Z20.822 Contact with and (suspected) exposure to COVID-19; J45.909 Unspecified asthma, uncomplicated; I10 Essential (primary) hypertension; F41.9 Anxiety disorder, unspecified; F32.9 Major depressive disorder, single episode, unspecified; E03.9 Hypothyroidism, unspecified
CPT/HCPCS: 36415; 64450; 80053; 85025; 86850; 86900; 86901; 87075; 87116; 88300; 88302; 88305; 88309; 88311; G0378; J3490; C1776; J1100; J1170; J1650; J1885; J2001; J2250; J2270; J2704; J3010; J7120; U0003

== ENCOUNTER 2022-01-28 11:17 | Outpatient (CLI) | payer MEDICARE | END 2022-01-28 11:18 | disposition home or self-care (01) | LOC: LAB 11:17 | PROVIDERS: ATTEND Orthopaedic Surgery | DX: M25.462 Effusion, left knee (principal) | CPT/HCPCS: 87116 ==

== ENCOUNTER 2022-05-10 10:18 | Outpatient (CLI) | payer MEDICARE ==
--- NOTE | 2022-05-10 12:40 | XRay Report ---
Left knee-2 views INDICATION: M17.12 OSTEOARTHRITIS M25.562 PAIN IN LEFT KNEE. COMPARISON: Left knee series from 02/26/2022 IMPRESSION: Abnormal lucency at the bone/metal interface along the anterior/medial aspect of the tib ial plate worrisome for loosening. There is also anterior subluxation of the distal leg relative to t he distal femur and generalized soft tissue swelling as well as small joint effusion. Finally, there is abnormal widening of the medial compartment. Signer Name: Berry Llamas MD Signed: 05/10/2022 12:36 PM Workstation Name: [email or web address] ([email or web address])
== END 2022-05-10 10:19 | disposition home or self-care (01) ==
LOC: XRAY 10:18
PROVIDERS: ATTEND Orthopaedic Surgery
DX: M25.462 Effusion, left knee (principal); M79.89 Other specified soft tissue disorders; M17.12 Unilateral primary osteoarthritis, left knee